=== PATIENT | female | born 1985 | race Caucasian/White ===

== ENCOUNTER → 2018-09-04 | Outpatient (CLI) | payer OTHER ==
--- NOTE | 2018-09-04 17:51 | RAD ---
Pelvic sonography-transabdominal and transvaginal sonography Clinical indications: Right-sided pelvic pain. Dyspareunia. Transabdominal sonography: The uterus is anteverted in position. The endometrial canal is poorly visualized. Therefore, transvaginal sonography will be performed. No free fluid is evident. Neither ovary is visualized. No adnexal mass is seen. Transvaginal sonography: The longitudinal and AP and transverse dimensions of the uterus are 8.1 cm and 3.9 cm and 5.1 cm respectively. The endometrial canal measures 7 mm in caliber which is normal. No uterine mass or fibroid is seen. Partially septated uterus or arcuate uterus is seen within the upper aspect. Fluid is seen within the cervical canal. There is a small complex nabothian cyst just posterior to the cervical canal which measures 5 mm in size. There is a small amount of free fluid within the cul-de-sac. The right ovary measures 4.3 cm and 2.5 cm and 2.7 cm in size and contains follicular cysts. The largest follicular cyst measures 28 mm in size and is simple in appearance. Color Doppler flow is seen within the right ovary. The left ovary measures 3.5 cm and 2.7 cm and 2.1 cm in size and contains follicular cysts. The largest measures 10 mm. Color Doppler flow is seen within the left ovary. No adnexal mass is seen. Small amount of free fluid is seen within the cul-de-sac. IMPRESSION: Small complex nabothian cyst. No uterine mass or fibroid or endometrial canal thickening is seen. Follicular cysts of both ovaries. Largest is seen on the right side measuring 28 mm. Electronically signed by: Armen Robles MD (09/04/2018 5:49 PM) [id number]
== END | disposition home or self-care (01) ==
LOC: US 10:43
PROVIDERS: ATTEND Obstetrics & Gynecology
DX: N83.02 Follicular cyst of left ovary (principal); N83.01 Follicular cyst of right ovary; N88.8 Other specified noninflammatory disorders of cervix uteri
CPT/HCPCS: 76856